=== PATIENT | male | born 1965 | race Caucasian/White ===

== ENCOUNTER 2023-09-12 08:40 | Day surgery (SDC) | payer OTHER ==
[2023-09-12 09:21] VITALS: BP 141/76; TEMP 97.9
== END 2023-09-12 10:56 | disposition home or self-care (01) ==
LOC: CSHRAD 08:40
PROVIDERS: ATTEND Nurse Practitioner Pediatrics
PROC: B02BYZZ Computerized Tomography (CT Scan) of Spinal Cord using Other Contrast (ICD-10-PCS; principal; 2023-09-12)
DX: M54.16 Radiculopathy, lumbar region (principal)
CPT/HCPCS: 62304; 72132